=== PATIENT | female | born 1990 | race Hispanic/Latino ===

== ENCOUNTER 2021-09-18 15:42 | Emergency (ER) | payer SELFPAY ==
[2021-09-18] MEDS ORDERED: CEFAZOLIN 1 GM VIAL ONE (16:21)
[2021-09-18] MEDS ORDERED: Lidocaine 2% PF 100 mg/5 ml Syringe ONE (16:22)
[2021-09-18] MEDS ORDERED: Lidocaine 2% PF 5 ML VIAL ONE (16:23)
[2021-09-18] MEDS ORDERED: Lidocaine 1% (PF) 30 ML VIAL ONE (16:23)
[2021-09-18] MEDS ORDERED: Lidocaine 4% Cream 5 GM TUBE w/ Tegaderm ONE (16:25)
[2021-09-18] MEDS ORDERED: Boostrix 0.5 ML (Tdap) VIAL ONE (16:28)
[2021-09-18] MEDS ORDERED: Morphine 4 MG/ML VIAL ONE ×2 (16:28→20:56)
[2021-09-18] MEDS ORDERED: Ketorolac Tromethamine 30 MG/ML VIAL ONE (16:28)
[2021-09-18] MEDS ORDERED: Ondansetron PF 4 MG/2 ML Vial ONE (16:28)
[2021-09-18] MEDS ORDERED: Midazolam HCl 2 mg/2 ml Vial ONE (19:37)
== END 2021-09-18 21:25 | disposition home or self-care (01) ==
LOC: ERS 15:42
DX: S01.111A Laceration without foreign body of right eyelid and periocular area, initial encounter (principal); H20.9 Unspecified iridocyclitis; F17.210 Nicotine dependence, cigarettes, uncomplicated; Y04.2XXA Assault by strike against or bumped into by another person, initial encounter; Z23 Encounter for immunization
CPT/HCPCS: 12014; 70450; 70486; 90471; 90715; 96374; 96375; 96376; J0690; J1885; J2001; J2250; J2270; J2405